=== PATIENT | female | born 1940 | race Caucasian/White ===

== ENCOUNTER 2019-04-18 13:15 | Emergency (ER) | payer MEDICARE, OTHER ==
--- NOTE | 2019-04-18 14:04 | EDM.PDOC ---
ED HPI GENERAL MEDICAL PROBLEM - General Chief Complaint: Laceration Stated Complaint: FINGER INJURY Time Seen by Provider: 04/18/19 13:15 Source of Information: Reports: Patient History Limitations: Reports: No Limitations - History of Present Illness INITIAL COMMENTS - FREE TEXT/NARRATIVE: Pt. states that she cut her finger on the lid of a can that she had opened with a can belt glass sander. She states that she does not get tetanus immunization. She states that she has been holding pressure on the finger but it continues to bleed and is difficult to control the bleeding as it is right below the edge of the distal portion of the nail. Denies any injury elsewhere. Onset: Today Onset Date: 04/18/19 Onset Time: 12:00 - Related Data Allergies Allergy/AdvReac Type Severity Reaction Status Date / Time amoxicillin Allergy Other Verified 04/18/19 13:38 codeine Allergy Other Verified 04/18/19 13:38 sulfamethoxazole Allergy Other Verified 04/18/19 13:38 [From Bactrim] tramadol Allergy Itching Verified 04/18/19 13:38 trimethoprim [From Bactrim] Allergy Other Verified 04/18/19 13:38 wyagesic Allergy Other Uncoded 04/18/19 13:38 Home Meds: Home Meds Acetaminophen [Tylenol] 500 mg PO QID PRN 04/18/15 [History] Aspirin [Halfprin] 81 mg PO DAILY 04/18/15 [History] Calcium Carbonate/Vitamin D3 [Calcium 600 + Vit D 200] 1 tab PO BID 04/18/15 [ History] Cholecalciferol (Vitamin D3) [Vitamin D] 1,000 unit PO DAILY 04/18/15 [History] Gluc Nunez 2KCl/Chondr/Vit C/Dileep [Glucosamine-Chondr Complex] 1 tab PO DAILY 04/18 [History] Magnesium Oxide 400 mg PO DAILY 04/18/15 [History] Multivitamin [Multivitamins] 1 tab PO DAILY 04/18/15 [History] Psyllium Husk [Metamucil] 1 tbsp PO DAILY 04/18/15 [History] allopurinoL [Zyloprim] 300 mg PO DAILY 04/18/15 [History] Vit A/C/E/Zinc/Selenium/Copper [Vision Formula Tablet] 1 dose PO DAILY 06/24/17 [History] Past Medical History HEENT History: Reports: Cataract, Macular Degeneration Gastrointestinal History: Reports: Colon Polyp, Diverticulosis, GERD, Other ( See Below) Other Gastrointestinal History: diverticulitis Genitourinary History: Reports: Other (See Below) Other Genitourinary History: fibrocystic breast disease Musculoskeletal History: Reports: Fibromyalgia, Gout, Osteoarthritis, Other ( See Below) Other Musculoskeletal History: dupuytrens contracture. bursitis. backache Neurological History: Reports: Neuropathy, Peripheral, Other (See Below) Other Neuro History: t12 compression fx Endocrine/Metabolic History: Reports: Other (See Below) Other Endocrine/Metabolic History: goiter Oncologic (Cancer) History: Reports: Lung - Past Surgical History HEENT Surgical History: Reports: Cataract Surgery, Tonsillectomy Respiratory Surgical History: Reports: Lung Resection, Pneumonectomy GI Surgical History: Reports: Colonoscopy, Other (See Below) Other GI Surgeries/Procedures: anoscopy Neurological Surgical History: Reports: Vertebroplasty Musculoskeletal Surgical History: Reports: Other (See Below) Other Musculoskeletal Surgeries/Procedures:: foot sx. gouty prominence exc. Social & Family History - Living Situation & Occupation Living situation: Reports: , Alone Occupation: Employed (as a store assistant.) ED ROS GENERAL - Review of Systems Review Of Systems: Comprehensive ROS is negative, except as noted in HPI. ED EXAM, SKIN/RASH Exam: See Below Exam Limited By: No Limitations General Appearance: Alert, WD/WN, No Apparent Distress Extremities: Other (0.5 cm laceration to tip of finger running horizontally, immediately next to the distal portion of the finger nail. It is too close to the nail to suture.) Neurological: Alert, Oriented, CN II-XII Intact, Normal Cognition, Normal Gait, Normal Reflexes, No Motor/Sensory Deficits Course - Re-Assessments/Exams Free Text/Narrative Re-Assessment/Exam: Finger is briskly bleeding, unable to perform suturing. Again, the laceration is basically under the nail and bleeding too heavily to apply dermabond, either. Surgicel pressure dressing was placed on the finger. Departure - Departure Time of Disposition: 14:02 Disposition: Home, Self-Care 01 Clinical Impression: Laceration - Discharge Information Instructions: Laceration Care, Adult Referrals: Molly Alonso MD [Primary Care Provider] - Forms: ED Department Discharge Additional Instructions: Keep dressing on until Saturday. You can remove the dressing at home. You will likely need to soak it to get it off. Keep dressing dry. Tylenol as needed for discomfort. Sepsis Event Note - Focused Exam Date Exam was Performed: 04/18/19 Time Exam was Performed: 14:11 - Assessment/Plan Plan: Keep dressing on until Saturday AM. You can remove the dressing at home. You will likely need to soak it to get it off. Keep dressing dry. Tylenol as needed for discomfort.
[2019-04-18 14:20] VITALS: BP 117/44; PULSE 75
== END 2019-04-18 13:55 | disposition home or self-care (01) ==
LOC: VM.ED 13:15
DX: S61.210A Laceration without foreign body of right index finger without damage to nail, initial encounter (principal); M10.9 Gout, unspecified; Z88.0 Allergy status to penicillin; Z88.5 Allergy status to narcotic agent; Z88.1 Allergy status to other antibiotic agents; Z88.8 Allergy status to other drugs, medicaments and biological substances; Z79.899 Other long term (current) drug therapy; Z79.82 Long term (current) use of aspirin; W26.8XXA Contact with other sharp object(s), not elsewhere classified, initial encounter; Y93.89 Activity, other specified
CPT/HCPCS: 99282; 99283-GF

== ENCOUNTER 2022-04-13 10:03 | Emergency (ER) | payer MEDICARE, OTHER ==
[2022-04-13 10:40] VITALS: PULSE 75
[2022-04-13 11:06] LABS: CORONAVIRUS COVID-19 NAA NEGATIVE (NEGATIVE)
[2022-04-13 11:49] VITALS: BP 124/70
== END 2022-04-13 11:35 | disposition home or self-care (01) ==
LOC: VM.ED 10:03
DX: J10.1 Influenza due to other identified influenza virus with other respiratory manifestations (principal); Z88.0 Allergy status to penicillin; Z88.5 Allergy status to narcotic agent; Z88.2 Allergy status to sulfonamides; Z79.899 Other long term (current) drug therapy; Z79.82 Long term (current) use of aspirin; Z20.822 Contact with and (suspected) exposure to COVID-19
CPT/HCPCS: 0240U; 99283; 99284